=== PATIENT | male | born 1970 | race American Indian/Alaskan Native ===

== ENCOUNTER 2020-09-30 10:20 | Emergency (ER) | payer OTHER ==
[2020-09-30 10:37] VITALS: BP 143/79
--- NOTE | 2020-09-30 11:07 | Emergency Department Report ---
ED Upper Extremity Inj HPI - General Chief Complaint: Extremity Injury, Upper Stated Complaint: RT ARM INJURY/FALL Time Seen by Provider: 09/30/20 11:01 Source: patient Mode of arrival: Ambulatory Limitations: No Limitations - History of Present Illness Initial Comments: This very pleasant 50-year-old male presents the emergency department chief complaint of right elbow pain. Patient reports he was standing on a 5 foot ladder installing a camera when he fell and landed on his elbow. He reports he is only having mild pain last night but when he woke up this morning his arm was very swollen and he was having increased pain. He reports the pain is aggravated by flexion and full extension. Pain is a 6 out of 10 in severity. Described as dull and throbbing. He denies any radiating pain. He denies any additional injuries. Denies any saddle losing conscious. He denies any known past medical history, current medication use or known allergies to medications. - Related Data Previous Rx's Medication Instructions Recorded Last Taken Type HYDROcodone/APAP 5-325 [[place] 1 each PO Q6HR PRN #12 tablet 09/30/20 Unknown Rx 5/325] Allergies Allergy/AdvReac Type Severity Reaction Status Date / Time No Known Allergies Allergy Unverified 09/30/20 10:36 ED Review of Systems ROS: Stated complaint: RT ARM INJURY/FALL Other details as noted in HPI Comment: All other systems reviewed and negative Constitutional: denies: chills, fever Eyes: denies: eye pain, eye discharge, vision change ENT: denies: ear pain, throat pain Respiratory: denies: cough, shortness of breath, wheezing Cardiovascular: denies: chest pain, palpitations Endocrine: no symptoms reported Gastrointestinal: denies: abdominal pain, nausea, diarrhea Genitourinary: denies: urgency, dysuria Musculoskeletal: denies: back pain, joint swelling, arthralgia Skin: denies: rash, lesions Neurological: denies: headache, weakness, paresthesias Psychiatric: denies: anxiety, depression Hematological/Lymphatic: denies: easy bleeding, easy bruising ED Past Medical Hx - Past Medical History Previous Medical History?: No - Surgical History Past Surgical History?: No - Medications Home Medications: Home Medications Medication Instructions Recorded Confirmed Last Taken Type HYDROcodone/APAP 5-325 [[place] 1 each PO Q6HR PRN #12 tablet 09/30/20 Unknown Rx 5/325] ED Physical Exam - General Limitations: No Limitations General appearance: alert, in no apparent distress - Head Head exam: Present: atraumatic, normocephalic - Expanded Head Exam Expanded Head exam: Absent: contusion, hematoma, racoon eyes, stack's sign - Eye Eye exam: Present: normal appearance, PERRL, EOMI Pupils: Present: normal accommodation - ENT ENT exam: Present: normal exam, normal orophraynx, mucous membranes moist - Neck Neck exam: Present: normal inspection, full ROM. Absent: tenderness, meningismus - Respiratory Respiratory exam: Present: normal lung sounds bilaterally. Absent: respiratory distress, wheezes, rales, rhonchi, stridor - Cardiovascular Cardiovascular Exam: Present: regular rate, normal rhythm, normal heart sounds. Absent: systolic murmur, diastolic murmur, rubs, gallop - GI/Abdominal GI/Abdominal exam: Present: soft, normal bowel sounds. Absent: distended, tenderness, guarding, rebound, rigid - Rectal Rectal exam: Present: deferred - Extremities Exam Extremities exam: Present: tenderness (There is tenderness to palpation and soft tissue edema over the posterior elbow and proximal forearm. There is normal radial pulses. Normal distal sensation capillary refill. No tenderness to the wrist or elbow.). Absent: full ROM - Back Exam Back exam: Present: normal inspection - Neurological Exam Neurological exam: Present: alert, oriented X3, CN II-XII intact - Psychiatric Psychiatric exam: Present: normal affect, normal mood - Skin Skin exam: Present: warm, dry, intact, normal color. Absent: rash ED Course Vital Signs 09/30/20 10:36 Temperature 98 F Pulse Rate 67 Respiratory 16 Rate Blood Pressure 143/79 [Right] O2 Sat by Pulse 100 Oximetry ED Medical Decision Making - Radiology Data Radiology results: report reviewed, image reviewed XRay Report Signed Patient: ANDRE BADILLO MR#: [id number] 77 : 1970 Acct:[id number] Age/Sex: 50 / M ADM Date: 09/30/20 Loc: ED Attending Dr: Ordering Physician: REINA SCOTT Date of Service: 09/30/20 Procedure(s): XR elbow 3+V RT Accession Number(s): [id number] cc: REINA SCOTT Fluoro Time In Minutes: LEFT ELBOW 3 VIEWS INDICATION: fall, pain. COMPARISON: None. IMPRESSION: A mildly displaced and comminuted olecranon fracture is identified with intra- articular extension at the elbow joint. The distal humerus and proximal radius appear intact. Large joint effusion and moderate to severe posterior soft tissue swelling is noted. Signer Name: Elvin Lau Jr, MD Signed: 09/30/2020 11:33 AM Workstation Name: [id number] Transcribed By: TTR Dictated By: ELVIN LAU JR, MD Electronically Authenticated By: ELVIN LAU JR, MD Signed Date/Time: 09/30/20 1133 - Medical Decision Making Patient presented after fall off ladder. There was a large amount of soft tissue swelling and pain over the olecranon. X-ray confirmed an olecranon fracture that is slightly displaced. Patient is hemodynamically and stable and has normal pulses and distal sensation intact. A posterior long-arm splint was placed and sling was given to patient. Patient be discharged with pain medication and outpatient orthopedic follow-up. Instructed to return the emerge department if he develops any change or worsening symptoms. Verbalized understand the diagnosis, treatment plan and follow-up instructions and all of his questions were answered. - Differential Diagnosis fracture, contusion, sprain Critical care attestation.: If time is entered above; I have spent that time in minutes in the direct care of this critically ill patient, excluding procedure time. ED Disposition Clinical Impression: Closed olecranon fracture Qualifiers: Encounter type: initial encounter Laterality: right Qualified Code(s): S52.021A - Displaced fracture of olecranon process without intraarticular extension of right ulna, initial encounter for closed fracture Disposition: - TO HOME OR SELFCARE Is pt being admited?: No Condition: Stable Instructions: Olecranon Fracture Prescriptions: HYDROcodone/APAP 5-325 [[place] 5/325] 1 each PO Q6HR PRN #12 tablet PRN Reason: Pain Referrals: RELL BERMAN MD [Staff Physician] - 3-5 Days Forms: Work/School Release Form(ED) Time of Disposition: 11:47
--- NOTE | 2020-09-30 11:38 | XRay Report ---
LEFT ELBOW 3 VIEWS INDICATION: fall, pain. COMPARISON: None. IMPRESSION: A mildly displaced and comminuted olecranon fracture is identified with intra-articular extension at the elbow joint. The distal humerus and proximal radius appear intact. Large joint effu josey and moderate to severe posterior soft tissue swelling is noted. Signer Name: Elvin Lau Jr, MD Signed: 09/30/2020 11:33 AM Workstation Name: [id number]
== END 2020-09-30 12:35 | disposition home or self-care (01) ==
LOC: ED 10:20
DX: S52.022A Displaced fracture of olecranon process without intraarticular extension of left ulna, initial encounter for closed fracture (principal); Z79.899 Other long term (current) drug therapy; W19.XXXA Unspecified fall, initial encounter; Y93.89 Activity, other specified; Y92.89 Other specified places as the place of occurrence of the external cause; Y99.8 Other external cause status